=== PATIENT | female | born 1970 | race Asian ===

== ENCOUNTER 2017-05-29 18:33 | Inpatient (IN) | payer OTHER ==
[2017-05-29 22:01] LABS: ADD MAN DIFF? NO
[2017-05-29 22:06] LABS: ADD UMIC YES; UR ASCORBIC ACID NEGATIVE (NEGATIVE); UR BACTERIA FEW /HPF (NONE SEEN); UR BILIRUBIN (Dip) NEGATIVE (NEGATIVE); UR BLOOD (Dip) 1+ mg/dL (NEGATIVE); UR CLARITY CLEAR (CLEAR); UR COLOR YELLOW (YELLOW); UR GLUCOSE (Dip) NEGATIVE (NEGATIVE); UR KETONES (Dip) NEGATIVE (NEGATIVE); UR LEUKOCYTE ESTERASE (Dip) 1+ Leu/ul (NEGATIVE); UR NITRITE (Dip) NEGATIVE (NEGATIVE); UR RBC 0 /HPF (0-5); UR SPECIFIC GRAVITY (Dip) 1.004 (1.003-1.030); UR SQUAMOUS EPITHELIAL CELL FEW /HPF (FEW); UR TOTAL PROTEIN (Dip) NEGATIVE (NEGATIVE); UR UROBILINOGEN (Dip) NEGATIVE (NEGATIVE); UR WBC 4 /HPF (0-5)
[2017-05-29 22:09] LABS: WHITE BLOOD COUNT 5.7 10^3/ul (4.8-10.8)
[2017-05-29 22:09] LABS: BASOPHILS % 0.5 % (0.0-2.0); EOSINOPHILS # 0.2 10^3/ul (0.0-0.5); HEMATOCRIT 33.9 % (37.0-47.0); LYMPHOCYTES # 1.1 10^3/ul (0.8-2.9); LYMPHOCYTES % 19.4 % (15.0-51.0); MEAN CORPUSCULAR HEMOGLOBIN 26.1 pg (29.0-33.0); MEAN CORPUSCULAR HGB CONC 32.4 g/dl (32.0-37.0); MEAN CORPUSCULAR VOLUME 80.5 fl (82.0-101.0); MONOCYTE # 0.8 10^3/ul (0.3-0.9); MONOCYTES % 14.6 % (0.0-11.0); NEUTROPHIL # 3.5 10^3/ul (1.6-7.5); NEUTROPHILS % 61.4 % (39.0-77.0); PLATELET COUNT 241 10^3/UL (140-415); RED BLOOD COUNT 4.21 10^6/ul (4.20-5.40); RED CELL DISTRIBUTION WIDTH 16.8 % (11.5-14.5)
[2017-05-29 22:13] LABS: INR 0.93; PROTIME 12.5 Sec (11.9-14.9)
[2017-05-29 22:14] LABS: PARTIAL THROMBOPLASTIN TIME 28.7 Sec (25.0-35.0)
[2017-05-29 22:15] LABS: ALANINE AMINOTRANSFERASE 394 IU/L (13-69); ALBUMIN 4.3 g/dl (3.3-4.9); ALKALINE PHOSPHATASE 395 IU/L (42-121); ANION GAP 14 (8-16); ASPARTATE AMINO TRANSFERASE 231 IU/L (15-46); BILIRUBIN,INDIRECT 0.3 mg/dl (0-1.1); BILIRUBIN,TOTAL 0.3 mg/dl (0.2-1.3); BLOOD UREA NITROGEN 9 mg/dl (7-20); CALCIUM 9.2 mg/dl (8.4-10.2); CARBON DIOXIDE 24 mmol/L (21-31); CHLORIDE 102 mmol/L (97-110); CREATININE 0.69 mg/dl (0.44-1.00); GLUCOSE 93 mg/dl (70-220); LIPASE 117 U/L (23-300); POTASSIUM 3.8 mmol/L (3.5-5.1); SODIUM 136 mmol/L (135-144); TOTAL PROTEIN 8.6 g/dl (6.1-8.1)
[2017-05-29 22:29] LABS: TROPONIN-I < 0.012 ng/ml (0.00-0.12)
[2017-05-29 22:32] LABS: LACTIC ACID 1.1 mmol/L (0.5-2.0)
[2017-05-29] MEDS: ACETAMINOPHEN 325 MG TAB PO (22:36)
[2017-05-29] MEDS: SODIUM CHLORIDE 0.9% 1L BAG IV* (22:36)
[2017-05-29] MEDS: CEFTRIAXONE 1 GM/50 ML (PMX) 50 ML IVPB (22:36)
[2017-05-30] MEDS: SOD CHLORIDE 0.9% 1,000 ML IV ×2 (01:54→11:01)
[2017-05-30] MEDS: IBUPROFEN 600 MG TAB PO ×4 (01:54→23:13)
[2017-05-30] MEDS: ONDANSETRON 4 MG INJ IV ×3 (01:54→17:41)
[2017-05-30 02:14] LABS: LACTIC ACID 1.4 mmol/L (0.5-2.0)
[2017-05-30 05:39] LABS: ADD MAN DIFF? NO
[2017-05-30 05:42] LABS: WHITE BLOOD COUNT 4.6 10^3/ul (4.8-10.8)
[2017-05-30 05:42] LABS: ABNORMAL IP MESSAGE 1; BASOPHILS % 0.2 % (0.0-2.0); EOSINOPHILS # 0.1 10^3/ul (0.0-0.5); EOSINOPHILS % 2.8 % (0.0-7.0); HEMATOCRIT 29.5 % (37.0-47.0); HEMOGLOBIN 9.3 g/dl (12.0-16.0); LYMPHOCYTES # 0.5 10^3/ul (0.8-2.9); LYMPHOCYTES % 10.4 % (15.0-51.0); MEAN CORPUSCULAR HEMOGLOBIN 25.5 pg (29.0-33.0); MEAN CORPUSCULAR HGB CONC 31.5 g/dl (32.0-37.0); MEAN PLATELET VOLUME 9.4 fl (7.4-10.4); MONOCYTE # 0.6 10^3/ul (0.3-0.9); MONOCYTES % 12.6 % (0.0-11.0); NEUTROPHIL # 3.4 10^3/ul (1.6-7.5); NEUTROPHILS % 73.1 % (39.0-77.0); PLATELET COUNT 165 10^3/UL (140-415); RED BLOOD COUNT 3.64 10^6/ul (4.20-5.40); RED CELL DISTRIBUTION WIDTH 16.8 % (11.5-14.5)
[2017-05-30 05:49] LABS: POSITIVE DIFF @See below
[2017-05-30 06:20] LABS: LACTIC ACID 0.9 mmol/L (0.5-2.0)
[2017-05-30 06:52] LABS: ANION GAP 11 (8-16); BLOOD UREA NITROGEN 6 mg/dl (7-20); CALCIUM 8.2 mg/dl (8.4-10.2); CARBON DIOXIDE 25 mmol/L (21-31); CHLORIDE 108 mmol/L (97-110); CREATININE 0.52 mg/dl (0.44-1.00); GLUCOSE 91 mg/dl (70-220); POTASSIUM 3.6 mmol/L (3.5-5.1); SODIUM 140 mmol/L (135-144)
[2017-05-30] MEDS: PANTOPRAZOLE (EC) 40 MG TAB PO (11:01)
[2017-05-30] MEDS: CEFTRIAXONE 1 GM/50 ML (PMX) 50 ML IVPB (21:33)
[2017-05-31] MEDS: SOD CHLORIDE 0.9% 1,000 ML IV (05:05)
[2017-05-31 05:47] LABS: ADD MAN DIFF? NO
[2017-05-31 05:57] LABS: WHITE BLOOD COUNT 5.8 10^3/ul (4.8-10.8)
[2017-05-31 05:57] LABS: BASOPHILS % 0.3 % (0.0-2.0); EOSINOPHILS # 0.5 10^3/ul (0.0-0.5); EOSINOPHILS % 8.5 % (0.0-7.0); HEMATOCRIT 26.4 % (37.0-47.0); HEMOGLOBIN 8.4 g/dl (12.0-16.0); LYMPHOCYTES # 0.8 10^3/ul (0.8-2.9); LYMPHOCYTES % 13.6 % (15.0-51.0); MEAN CORPUSCULAR HGB CONC 31.8 g/dl (32.0-37.0); MEAN CORPUSCULAR VOLUME 81.7 fl (82.0-101.0); MEAN PLATELET VOLUME 10.5 fl (7.4-10.4); MONOCYTES % 16.9 % (0.0-11.0); NEUTROPHIL # 3.4 10^3/ul (1.6-7.5); NEUTROPHILS % 59.8 % (39.0-77.0); PLATELET COUNT 145 10^3/UL (140-415); RED BLOOD COUNT 3.23 10^6/ul (4.20-5.40); RED CELL DISTRIBUTION WIDTH 17.4 % (11.5-14.5)
[2017-05-31 06:34] LABS: ANION GAP 10 (8-16); BLOOD UREA NITROGEN 5 mg/dl (7-20); CALCIUM 8.1 mg/dl (8.4-10.2); CARBON DIOXIDE 27 mmol/L (21-31); CHLORIDE 109 mmol/L (97-110); CREATININE 0.51 mg/dl (0.44-1.00); GLUCOSE 92 mg/dl (70-220); POTASSIUM 3.5 mmol/L (3.5-5.1); SODIUM 142 mmol/L (135-144)
[2017-05-31] MEDS: PANTOPRAZOLE (EC) 40 MG TAB PO (16:09)
[2017-05-31] MEDS: IBUPROFEN 600 MG TAB PO (16:09)
[2017-05-31] MEDS: ACETAMINOPHEN 325 MG TAB PO (21:37)
[2017-05-31] MEDS: CEFTRIAXONE 1 GM/50 ML (PMX) 50 ML IVPB (22:02)
[2017-06-01] MEDS: IBUPROFEN 600 MG TAB PO (04:52)
[2017-06-01 04:55] LABS: ADD MAN DIFF? NO
[2017-06-01 04:56] LABS: BASOPHILS % 0.3 % (0.0-2.0); EOSINOPHILS # 0.6 10^3/ul (0.0-0.5); EOSINOPHILS % 8.1 % (0.0-7.0); HEMOGLOBIN 8.8 g/dl (12.0-16.0); LYMPHOCYTES # 0.9 10^3/ul (0.8-2.9); LYMPHOCYTES % 12.6 % (15.0-51.0); MEAN CORPUSCULAR HEMOGLOBIN 25.8 pg (29.0-33.0); MEAN CORPUSCULAR HGB CONC 31.4 g/dl (32.0-37.0); MEAN CORPUSCULAR VOLUME 82.1 fl (82.0-101.0); MEAN PLATELET VOLUME 10.9 fl (7.4-10.4); MONOCYTE # 0.9 10^3/ul (0.3-0.9); MONOCYTES % 13.4 % (0.0-11.0); NEUTROPHIL # 4.5 10^3/ul (1.6-7.5); NEUTROPHILS % 64.9 % (39.0-77.0); PLATELET COUNT 166 10^3/UL (140-415); RED BLOOD COUNT 3.41 10^6/ul (4.20-5.40)
[2017-06-01 04:56] LABS: WHITE BLOOD COUNT 6.9 10^3/ul (4.8-10.8)
[2017-06-01] MEDS: SOD CHLORIDE 0.9% 1,000 ML IV ×2 (05:13→19:46)
[2017-06-01 05:24] LABS: ALANINE AMINOTRANSFERASE 295 IU/L (13-69); ALBUMIN 3.1 g/dl (3.3-4.9); ALBUMIN/GLOBULIN RATIO 0.88; ALKALINE PHOSPHATASE 337 IU/L (42-121); ANION GAP 14 (8-16); ASPARTATE AMINO TRANSFERASE 266 IU/L (15-46); BILIRUBIN,INDIRECT 0.3 mg/dl (0-1.1); BILIRUBIN,TOTAL 1.6 mg/dl (0.2-1.3); BLOOD UREA NITROGEN 3 mg/dl (7-20); CALCIUM 8.7 mg/dl (8.4-10.2); CARBON DIOXIDE 24 mmol/L (21-31); CHLORIDE 109 mmol/L (97-110); CREATININE 0.53 mg/dl (0.44-1.00); GLUCOSE 87 mg/dl (70-220); POTASSIUM 3.5 mmol/L (3.5-5.1); SODIUM 143 mmol/L (135-144); TOTAL PROTEIN 6.6 g/dl (6.1-8.1)
[2017-06-01] MEDS: PANTOPRAZOLE (EC) 40 MG TAB PO (06:37)
[2017-06-01] MEDS ORDERED: SUGAMMADEX SODIUM 200 MG/2 ML VIAL IV (07:00)
[2017-06-01] MEDS ORDERED: IOHEXOL 300MG/ML 30 ML BTL (14:35)
[2017-06-01] MEDS ORDERED: PROPOFOL 20 ML (14:39)
[2017-06-01] MEDS ORDERED: CEFAZOLIN 1 GM INJ (14:39)
[2017-06-01] MEDS ORDERED: ROCURONIUM 50 MG INJ (14:39)
[2017-06-01] MEDS ORDERED: NEOSTIGMINE 3 MG/3 ML SYRINGE (14:39)
[2017-06-01] MEDS ORDERED: GLYCOPYRROLATE 0.4 MG INJ (14:39)
[2017-06-01] MEDS ORDERED: MIDAZOLAM 1 MG/ML 2 ML INJ (14:40)
[2017-06-01] MEDS ORDERED: FENTAnyl 50 MCG/ML VIAL (14:40)
[2017-06-01] MEDS ORDERED: ONDANSETRON 4 MG INJ (14:40)
[2017-06-01] MEDS ORDERED: DEXAMETHASONE 4 MG/ML 1 ML INJ (14:40)
[2017-06-01] MEDS ORDERED: TRIMETHOBENZAMIDE 100 MG/ML VIAL IM (15:30)
[2017-06-01] MEDS ORDERED: MEPERIDINE 25 MG INJ IV (15:30)
[2017-06-01] MEDS ORDERED: ALBUTEROL 0.083% (NEB) 2.5 MG/3 ML AMP HHN (15:30)
[2017-06-01] MEDS ORDERED: LABETALOL HCL 20MG INJ IV (15:30)
[2017-06-01] MEDS ORDERED: ONDANSETRON 4 MG INJ IV (15:30)
[2017-06-01] MEDS ORDERED: HYDROmorphONE (0.2 MG/ML) 10ML SYG IV ×3 (15:30)
[2017-06-01] MEDS ORDERED: IPRATROPIUM (NEB) 0.5 MG/2.5 ML AMP HHN (15:30)
[2017-06-01] MEDS ORDERED: EPHEDrine SULFATE 50 MG/5 ML SYG IV (15:30)
[2017-06-01] MEDS ORDERED: OXYCODONE/ACETAMINOPHEN (5/325) TAB PO ×2 (15:30)
[2017-06-01] MEDS ORDERED: FENTAnyl 50 MCG/ML VIAL IV ×3 (15:30)
[2017-06-01] MEDS ORDERED: hydrALAzine 20 MG INJ IV (15:30)
[2017-06-01] MEDS ORDERED: MIDAZOLAM 1 MG/ML 2 ML INJ IV (15:30)
[2017-06-01] MEDS ORDERED: DIPHENHYDRAMINE 50 MG INJ IV (15:30)
[2017-06-01] MEDS: ONDANSETRON 4 MG INJ IV (18:33)
[2017-06-01] MEDS: ACETAMINOPHEN 325 MG TAB PO (19:37)
[2017-06-01] MEDS: ACETAMINOPHEN 1000MG/100ML IV 100 ML IVPB (20:37)
[2017-06-01] MEDS: CEFTRIAXONE 1 GM/50 ML (PMX) 50 ML IVPB (22:20)
[2017-06-02] MEDS: ONDANSETRON 4 MG INJ IV ×2 (00:17→17:28)
[2017-06-02] MEDS: PANTOPRAZOLE 40 MG INJ IV ×2 (01:05→05:13)
[2017-06-02] MEDS: AL HYDROX/MG HYDROX/SIMETH 30 ML CUP PO (01:05)
[2017-06-02] MEDS: ACETAMINOPHEN 1000MG/100ML IV 100 ML IVPB ×2 (04:41→17:29)
[2017-06-02] MEDS: KETOROLAC 30 MG INJ IV ×3 (05:27→22:51)
[2017-06-02] MEDS ORDERED: PANTOPRAZOLE 40 MG INJ IV (06:00)
[2017-06-02] MEDS: IBUPROFEN 600 MG TAB PO (10:06)
[2017-06-02 12:24] LABS: ADD MAN DIFF? NO
[2017-06-02 12:29] LABS: BASOPHILS % 0.2 % (0.0-2.0); EOSINOPHILS % 0.4 % (0.0-7.0); HEMATOCRIT 27.8 % (37.0-47.0); HEMOGLOBIN 9.1 g/dl (12.0-16.0); LYMPHOCYTES # 0.9 10^3/ul (0.8-2.9); LYMPHOCYTES % 9.6 % (15.0-51.0); MEAN CORPUSCULAR HEMOGLOBIN 25.9 pg (29.0-33.0); MEAN CORPUSCULAR HGB CONC 32.7 g/dl (32.0-37.0); MEAN PLATELET VOLUME 11.1 fl (7.4-10.4); MONOCYTE # 0.8 10^3/ul (0.3-0.9); MONOCYTES % 8.9 % (0.0-11.0); NEUTROPHIL # 7.2 10^3/ul (1.6-7.5); NEUTROPHILS % 80.6 % (39.0-77.0); PLATELET COUNT 200 10^3/UL (140-415); RED BLOOD COUNT 3.52 10^6/ul (4.20-5.40); RED CELL DISTRIBUTION WIDTH 18.2 % (11.5-14.5)
[2017-06-02 12:29] LABS: WHITE BLOOD COUNT 8.9 10^3/ul (4.8-10.8)
[2017-06-02 12:50] LABS: ANION GAP 15 (8-16); BLOOD UREA NITROGEN 3 mg/dl (7-20); CALCIUM 8.3 mg/dl (8.4-10.2); CARBON DIOXIDE 25 mmol/L (21-31); CHLORIDE 104 mmol/L (97-110); CREATININE 0.52 mg/dl (0.44-1.00); GLUCOSE 83 mg/dl (70-220); SODIUM 141 mmol/L (135-144)
[2017-06-02] MEDS: POTASSIUM CHLORIDE 100 ML IVPB ×2 (15:47→18:53)
[2017-06-02] MEDS: SOD CHLORIDE 0.9% 1,000 ML IV (17:17)
[2017-06-02] MEDS: CEFTRIAXONE 1 GM/50 ML (PMX) 50 ML IVPB (21:43)
[2017-06-03] MEDS: ACETAMINOPHEN 1000MG/100ML IV 100 ML IVPB ×2 (04:52→14:38)
[2017-06-03] MEDS: ONDANSETRON 4 MG INJ IV ×3 (04:52→21:21)
[2017-06-03] MEDS: PANTOPRAZOLE 40 MG INJ IV (05:05)
[2017-06-03] MEDS: KETOROLAC 30 MG INJ IV ×2 (09:14→21:23)
[2017-06-03 09:16] LABS: ADD MAN DIFF? NO
[2017-06-03 09:18] LABS: BASOPHIL # 0.1 10^3/ul (0.0-0.1); BASOPHILS % 0.4 % (0.0-2.0); EOSINOPHILS # 0.2 10^3/ul (0.0-0.5); EOSINOPHILS % 1.3 % (0.0-7.0); HEMOGLOBIN 10.7 g/dl (12.0-16.0); LYMPHOCYTES # 0.9 10^3/ul (0.8-2.9); MEAN CORPUSCULAR HEMOGLOBIN 26.2 pg (29.0-33.0); MEAN CORPUSCULAR HGB CONC 32.4 g/dl (32.0-37.0); MEAN CORPUSCULAR VOLUME 80.9 fl (82.0-101.0); MEAN PLATELET VOLUME 10.4 fl (7.4-10.4); MONOCYTES % 8.2 % (0.0-11.0); NEUTROPHIL # 9.4 10^3/ul (1.6-7.5); NEUTROPHILS % 81.5 % (39.0-77.0); PLATELET COUNT 241 10^3/UL (140-415); RED BLOOD COUNT 4.08 10^6/ul (4.20-5.40); RED CELL DISTRIBUTION WIDTH 18.5 % (11.5-14.5)
[2017-06-03 09:18] LABS: WHITE BLOOD COUNT 11.6 10^3/ul (4.8-10.8)
[2017-06-03 09:38] LABS: ANION GAP 18 (8-16); BLOOD UREA NITROGEN 5 mg/dl (7-20); CALCIUM 8.8 mg/dl (8.4-10.2); CARBON DIOXIDE 21 mmol/L (21-31); CHLORIDE 105 mmol/L (97-110); CREATININE 0.58 mg/dl (0.44-1.00); GLUCOSE 80 mg/dl (70-220); POTASSIUM 3.7 mmol/L (3.5-5.1); SODIUM 140 mmol/L (135-144)
[2017-06-03] MEDS: SOD CHLORIDE 0.9% 1,000 ML IV ×2 (14:29→17:40)
[2017-06-03] MEDS: IBUPROFEN 600 MG TAB PO (17:40)
[2017-06-03] MEDS: CEFTRIAXONE 1 GM/50 ML (PMX) 50 ML IVPB (21:25)
[2017-06-04] MEDS: ACETAMINOPHEN 1000MG/100ML IV 100 ML IVPB ×3 (03:17→22:27)
[2017-06-04] MEDS: PANTOPRAZOLE 40 MG INJ IV (05:57)
[2017-06-04] MEDS: ONDANSETRON 4 MG INJ IV ×2 (08:23→22:27)
[2017-06-04 09:07] LABS: ADD MAN DIFF? NO
[2017-06-04 09:10] LABS: ABNORMAL IP MESSAGE 1; BASOPHILS % 0.3 % (0.0-2.0); EOSINOPHILS # 0.1 10^3/ul (0.0-0.5); EOSINOPHILS % 0.5 % (0.0-7.0); HEMATOCRIT 31.3 % (37.0-47.0); HEMOGLOBIN 10.1 g/dl (12.0-16.0); LYMPHOCYTES # 0.5 10^3/ul (0.8-2.9); LYMPHOCYTES % 3.5 % (15.0-51.0); MEAN CORPUSCULAR HGB CONC 32.3 g/dl (32.0-37.0); MEAN CORPUSCULAR VOLUME 80.7 fl (82.0-101.0); MEAN PLATELET VOLUME 11.5 fl (7.4-10.4); MONOCYTE # 0.5 10^3/ul (0.3-0.9); MONOCYTES % 3.5 % (0.0-11.0); NEUTROPHIL # 13.3 10^3/ul (1.6-7.5); PLATELET COUNT 233 10^3/UL (140-415); RED BLOOD COUNT 3.88 10^6/ul (4.20-5.40); RED CELL DISTRIBUTION WIDTH 19.1 % (11.5-14.5)
[2017-06-04 09:10] LABS: WHITE BLOOD COUNT 14.6 10^3/ul (4.8-10.8)
[2017-06-04 09:11] LABS: NEUTROPHILS % 91.7 % (39.0-77.0); POSITIVE DIFF @See below
[2017-06-04 09:26] LABS: ALANINE AMINOTRANSFERASE 205 IU/L (13-69); ALBUMIN 3.3 g/dl (3.3-4.9); ALBUMIN/GLOBULIN RATIO 0.91; ALKALINE PHOSPHATASE 322 IU/L (42-121); ANION GAP 13 (8-16); ASPARTATE AMINO TRANSFERASE 139 IU/L (15-46); BILIRUBIN,INDIRECT 0.7 mg/dl (0-1.1); BILIRUBIN,TOTAL 2.1 mg/dl (0.2-1.3); BLOOD UREA NITROGEN 3 mg/dl (7-20); CALCIUM 8.4 mg/dl (8.4-10.2); CARBON DIOXIDE 24 mmol/L (21-31); CHLORIDE 104 mmol/L (97-110); CREATININE 0.53 mg/dl (0.44-1.00); GLUCOSE 87 mg/dl (70-220); POTASSIUM 3.6 mmol/L (3.5-5.1); SODIUM 137 mmol/L (135-144); TOTAL PROTEIN 6.9 g/dl (6.1-8.1)
[2017-06-04] MEDS: KETOROLAC 30 MG INJ IV (10:29)
[2017-06-04] MEDS: metroNIDAZOLE 500 MG/NS (PMX) 100 ML IVPB ×2 (12:14→22:49)
[2017-06-04] MEDS: SOD CHLORIDE 0.9% 1,000 ML IV (16:51)
[2017-06-04] MEDS: CEFTRIAXONE 1 GM/50 ML (PMX) 50 ML IVPB (21:44)
[2017-06-05] MEDS: PANTOPRAZOLE 40 MG INJ IV (06:11)
[2017-06-05] MEDS: metroNIDAZOLE 500 MG/NS (PMX) 100 ML IVPB ×3 (06:11→21:17)
[2017-06-05] MEDS: morphine 2 MG INJ IV (07:55)
[2017-06-05] MEDS: ONDANSETRON 4 MG INJ IV ×2 (07:55→18:18)
[2017-06-05 11:28] LABS: ADD MAN DIFF? NO
[2017-06-05 11:32] LABS: BASOPHIL # 0.1 10^3/ul (0.0-0.1); BASOPHILS % 0.4 % (0.0-2.0); EOSINOPHILS # 0.3 10^3/ul (0.0-0.5); EOSINOPHILS % 2.3 % (0.0-7.0); HEMOGLOBIN 8.7 g/dl (12.0-16.0); LYMPHOCYTES # 0.8 10^3/ul (0.8-2.9); LYMPHOCYTES % 6.5 % (15.0-51.0); MEAN CORPUSCULAR HEMOGLOBIN 25.7 pg (29.0-33.0); MEAN CORPUSCULAR HGB CONC 32.2 g/dl (32.0-37.0); MEAN CORPUSCULAR VOLUME 79.6 fl (82.0-101.0); MEAN PLATELET VOLUME 12.4 fl (7.4-10.4); MONOCYTE # 1.2 10^3/ul (0.3-0.9); MONOCYTES % 9.9 % (0.0-11.0); NEUTROPHIL # 9.6 10^3/ul (1.6-7.5); NEUTROPHILS % 80.1 % (39.0-77.0); PLATELET COUNT 213 10^3/UL (140-415); RED BLOOD COUNT 3.39 10^6/ul (4.20-5.40); RED CELL DISTRIBUTION WIDTH 19.7 % (11.5-14.5)
[2017-06-05 11:32] LABS: WHITE BLOOD COUNT 11.9 10^3/ul (4.8-10.8)
[2017-06-05] MEDS: AL HYDROX/MG HYDROX/SIMETH 30 ML CUP PO (11:46)
[2017-06-05 11:47] LABS: POSITIVE DIFF @See below
[2017-06-05] MEDS: ACETAMINOPHEN 1000MG/100ML IV 100 ML IVPB ×2 (11:48→19:51)
[2017-06-05 12:03] LABS: LIPASE 55 U/L (23-300)
[2017-06-05 12:27] LABS: ANION GAP 14 (8-16); BLOOD UREA NITROGEN 5 mg/dl (7-20); CALCIUM 7.9 mg/dl (8.4-10.2); CARBON DIOXIDE 22 mmol/L (21-31); CHLORIDE 104 mmol/L (97-110); CREATININE 0.57 mg/dl (0.44-1.00); GLUCOSE 53 mg/dl (70-220); POTASSIUM 3.2 mmol/L (3.5-5.1); SODIUM 137 mmol/L (135-144)
[2017-06-05] MEDS ORDERED: HYDROmorphONE 0.5 MG/0.5 ML SYG IV (12:30)
[2017-06-05 12:47] LABS: ANISOCYTOSIS 1+ (0-0); BAND NEUTROPHILS % (M) 26 % (0-4); HYPOCHROMASIA 1+ (0-0); LYMPHOCYTES #M 0.4 10^3/ul (0.8-2.9); LYMPHOCYTES % (M) 4 % (15-51); MONOCYTE #M 0.3 10^3/ul (0.3-0.9); MONOCYTES % (M) 3 % (0-11); PLATELET ESTIMATE NORMAL; POIKILOCYTOSIS 2+ (0-0); POLYCHROMASIA 3+ (0-0); REACTIVE LYMPHOCYTES #M 0.2 10^3/ul (0.0-0.0); REACTIVE LYMPHOCYTES% (M) 2 % (0-0); SEG NEUT #M 8.1 10^3/ul (1.6-7.5); SEGMENTED NEUTROPHILS (M) % 65 % (39-77); SMUDGE%M 8 % (0-0)
[2017-06-05] MEDS: SOD CHLORIDE 0.9% 1,000 ML IV (14:23)
[2017-06-05] MEDS: POTASSIUM CHLORIDE (SR) 20 MEQ TAB PO (18:18)
[2017-06-05] MEDS: CEFTRIAXONE 1 GM/50 ML (PMX) 50 ML IVPB (21:18)
[2017-06-06] MEDS: ACETAMINOPHEN 1000MG/100ML IV 100 ML IVPB ×2 (04:15→12:10)
[2017-06-06 06:07] LABS: ADD MAN DIFF? NO
[2017-06-06] MEDS: PANTOPRAZOLE 40 MG INJ IV (06:25)
[2017-06-06] MEDS: metroNIDAZOLE 500 MG/NS (PMX) 100 ML IVPB ×3 (06:25→22:25)
[2017-06-06 06:43] LABS: WHITE BLOOD COUNT 11.2 10^3/ul (4.8-10.8)
[2017-06-06 06:43] LABS: BASOPHILS % 0.4 % (0.0-2.0); EOSINOPHILS # 0.4 10^3/ul (0.0-0.5); EOSINOPHILS % 3.4 % (0.0-7.0); HEMATOCRIT 25.8 % (37.0-47.0); HEMOGLOBIN 8.6 g/dl (12.0-16.0); LYMPHOCYTES # 0.8 10^3/ul (0.8-2.9); LYMPHOCYTES % 7.3 % (15.0-51.0); MEAN CORPUSCULAR HEMOGLOBIN 26.3 pg (29.0-33.0); MEAN CORPUSCULAR HGB CONC 33.3 g/dl (32.0-37.0); MEAN CORPUSCULAR VOLUME 78.9 fl (82.0-101.0); MEAN PLATELET VOLUME 11.9 fl (7.4-10.4); MONOCYTE # 1.5 10^3/ul (0.3-0.9); MONOCYTES % 13.2 % (0.0-11.0); NEUTROPHIL # 8.4 10^3/ul (1.6-7.5); NEUTROPHILS % 74.8 % (39.0-77.0); PLATELET COUNT 220 10^3/UL (140-415); RED BLOOD COUNT 3.27 10^6/ul (4.20-5.40); RED CELL DISTRIBUTION WIDTH 19.2 % (11.5-14.5)
[2017-06-06 06:48] LABS: ANION GAP 11 (8-16); BLOOD UREA NITROGEN 3 mg/dl (7-20); CARBON DIOXIDE 24 mmol/L (21-31); CHLORIDE 106 mmol/L (97-110); CREATININE 0.51 mg/dl (0.44-1.00); GLUCOSE 82 mg/dl (70-220); POTASSIUM 3.7 mmol/L (3.5-5.1); SODIUM 137 mmol/L (135-144)
[2017-06-06] MEDS: ONDANSETRON 4 MG INJ IV ×3 (08:21→16:28)
[2017-06-06] MEDS ORDERED: POTASSIUM CHLORIDE 20 MEQ POWDER FOR ORAL SOLN PO (09:00)
[2017-06-06] MEDS: AL HYDROX/MG HYDROX/SIMETH 30 ML CUP PO (15:13)
[2017-06-06] MEDS: morphine 2 MG INJ IV (16:28)
[2017-06-06] MEDS: HYDROmorphONE 0.5 MG/0.5 ML SYG IV (21:06)
[2017-06-06] MEDS: CEFTRIAXONE 1 GM/50 ML (PMX) 50 ML IVPB (21:42)
[2017-06-07] MEDS: AL HYDROX/MG HYDROX/SIMETH 30 ML CUP PO ×2 (02:30→06:49)
[2017-06-07] MEDS: ONDANSETRON 4 MG INJ IV ×3 (02:33→14:00)
[2017-06-07] MEDS: SOD CHLORIDE 0.9% 1,000 ML IV ×2 (02:39→12:44)
[2017-06-07 05:09] LABS: ADD MAN DIFF? NO
[2017-06-07 05:13] LABS: BASOPHIL # 0.1 10^3/ul (0.0-0.1); BASOPHILS % 0.5 % (0.0-2.0); EOSINOPHILS # 0.3 10^3/ul (0.0-0.5); EOSINOPHILS % 2.6 % (0.0-7.0); HEMATOCRIT 27.9 % (37.0-47.0); LYMPHOCYTES # 0.9 10^3/ul (0.8-2.9); LYMPHOCYTES % 8.5 % (15.0-51.0); MEAN CORPUSCULAR HEMOGLOBIN 25.4 pg (29.0-33.0); MEAN CORPUSCULAR HGB CONC 32.3 g/dl (32.0-37.0); MEAN CORPUSCULAR VOLUME 78.6 fl (82.0-101.0); MEAN PLATELET VOLUME 10.7 fl (7.4-10.4); MONOCYTE # 1.2 10^3/ul (0.3-0.9); MONOCYTES % 11.4 % (0.0-11.0); NEUTROPHIL # 7.6 10^3/ul (1.6-7.5); PLATELET COUNT 246 10^3/UL (140-415); RED BLOOD COUNT 3.55 10^6/ul (4.20-5.40); RED CELL DISTRIBUTION WIDTH 19.1 % (11.5-14.5)
[2017-06-07 05:13] LABS: WHITE BLOOD COUNT 10.1 10^3/ul (4.8-10.8)
[2017-06-07] MEDS: ACETAMINOPHEN 1000MG/100ML IV 100 ML IVPB ×2 (05:28→14:00)
[2017-06-07 05:43] LABS: ANION GAP 15 (8-16); BLOOD UREA NITROGEN 3 mg/dl (7-20); CALCIUM 7.9 mg/dl (8.4-10.2); CARBON DIOXIDE 25 mmol/L (21-31); CHLORIDE 103 mmol/L (97-110); CREATININE 0.54 mg/dl (0.44-1.00); GLUCOSE 82 mg/dl (70-220); POTASSIUM 3.5 mmol/L (3.5-5.1); SODIUM 139 mmol/L (135-144)
[2017-06-07] MEDS: metroNIDAZOLE 500 MG/NS (PMX) 100 ML IVPB ×2 (05:54→13:58)
[2017-06-07] MEDS: PANTOPRAZOLE 40 MG INJ IV (05:55)
[2017-06-09 11:51] LABS: PROCALCITONIN 5.11 ng/mL (<0.10)
== END 2017-06-07 18:40 | disposition home or self-care (01) | DRG 872 ==
LOC: MS1 23:14 → E/R 18:33
PROC: 0F798DZ Dilation of Common Bile Duct with Intraluminal Device, Via Natural or Artificial Opening Endoscopic (ICD-10-PCS; principal; 2017-06-01 14:42)
PROC: 0F758DZ Dilation of Right Hepatic Duct with Intraluminal Device, Via Natural or Artificial Opening Endoscopic (ICD-10-PCS; 2017-06-01 14:42)
PROC: 0F768DZ Dilation of Left Hepatic Duct with Intraluminal Device, Via Natural or Artificial Opening Endoscopic (ICD-10-PCS; 2017-06-01 14:42)
DX: A41.9 Sepsis, unspecified organism (principal); K83.0 Cholangitis; C22.1 Intrahepatic bile duct carcinoma; C78.7 Secondary malignant neoplasm of liver and intrahepatic bile duct; C24.0 Malignant neoplasm of extrahepatic bile duct; R11.2 Nausea with vomiting, unspecified; N39.0 Urinary tract infection, site not specified; R65.20 Severe sepsis without septic shock; E87.6 Hypokalemia; Z79.899 Other long term (current) drug therapy
CPT/HCPCS: 36415; 71045; 72128; 72131; 74150; 74330; 76705; 80048; 80053; 81001; 83605; 83690; 84145; 84484; 85025; 85610; 85730; 87040; 87086; 93005; 96374; 99285-25

== ENCOUNTER 2017-07-26 15:19 | Emergency (ER) | payer OTHER ==
[2017-07-26] MEDS: morphine 4 MG/ML VIAL IV (17:36)
[2017-07-26] MEDS: ACETAMINOPHEN 325 MG TAB PO (17:43)
[2017-07-26] MEDS: ONDANSETRON 4 MG INJ IV (18:35)
[2017-07-26] MEDS: SOD CHLORIDE 0.9% 1,000 ML IV (18:35)
[2017-07-26 18:50] LABS: ADD MAN DIFF? NO
[2017-07-26 18:54] LABS: BASOPHILS % 0.3 % (0.0-2.0); EOSINOPHILS % 0.1 % (0.0-7.0); HEMOGLOBIN 8.2 g/dl (12.0-16.0); LYMPHOCYTES # 1.2 10^3/ul (0.8-2.9); LYMPHOCYTES % 10.7 % (15.0-51.0); MEAN CORPUSCULAR HEMOGLOBIN 24.8 pg (29.0-33.0); MEAN CORPUSCULAR HGB CONC 31.5 g/dl (32.0-37.0); MEAN CORPUSCULAR VOLUME 78.8 fl (82.0-101.0); MEAN PLATELET VOLUME 10.1 fl (7.4-10.4); MONOCYTE # 0.8 10^3/ul (0.3-0.9); MONOCYTES % 7.4 % (0.0-11.0); NUCLEATED RED BLOOD CELLS% 0.2 /100WBC (0.0-0.0); PLATELET COUNT 395 10^3/UL (140-415); RED CELL DISTRIBUTION WIDTH 19.4 % (11.5-14.5)
[2017-07-26 18:54] LABS: WHITE BLOOD COUNT 11.1 10^3/ul (4.8-10.8)
[2017-07-26 19:16] LABS: ALANINE AMINOTRANSFERASE 41 IU/L (13-69); ALBUMIN 3.2 g/dl (3.3-4.9); ALBUMIN/GLOBULIN RATIO 0.96; ALKALINE PHOSPHATASE 90 IU/L (42-121); ANION GAP 13 (8-16); ASPARTATE AMINO TRANSFERASE 120 IU/L (15-46); BILIRUBIN,INDIRECT 0.4 mg/dl (0-1.1); BILIRUBIN,TOTAL 0.4 mg/dl (0.2-1.3); BLOOD UREA NITROGEN 9 mg/dl (7-20); CALCIUM 8.5 mg/dl (8.4-10.2); CARBON DIOXIDE 24 mmol/L (21-31); CHLORIDE 102 mmol/L (97-110); GLUCOSE 92 mg/dl (70-220); LIPASE 128 U/L (23-300); POTASSIUM 3.7 mmol/L (3.5-5.1); SODIUM 135 mmol/L (135-144); TOTAL PROTEIN 6.5 g/dl (6.1-8.1)
[2017-07-26 19:51] LABS: URINE BLOOD (Dip) POC 2+ (NEGATIVE); URINE GLUCOSE (Dip) POC Negative (NEGATIVE); URINE KETONES (Dip) POC Negative (NEGATIVE); URINE LEUKOCYTE EST (Dip) POC Negative (NEGATIVE); URINE NITRITE (Dip) POC Negative (NEGATIVE); URINE TOTAL PROTEIN POC Trace (NEGATIVE)
== END 2017-07-26 20:50 | disposition home or self-care (01) ==
LOC: E/R 15:19
DX: C22.1 Intrahepatic bile duct carcinoma (principal); D64.9 Anemia, unspecified; J45.909 Unspecified asthma, uncomplicated
CPT/HCPCS: 36415; 74176; 80053; 81003; 83690; 85025; 96374; 99285-25

== ENCOUNTER 2017-10-09 22:25 | Emergency (ER) | payer SELFPAY, OTHER | END 2017-10-10 03:03 | disposition left against medical advice (07) | LOC: E/R 22:25 | DX: Z53.21 Procedure and treatment not carried out due to patient leaving prior to being seen by health care provider (principal) ==